=== PATIENT | male | born 1995 | race American Indian/Alaskan Native ===

== ENCOUNTER 2019-03-12 08:49 | Emergency (ER) | payer SELFPAY ==
--- NOTE | 2019-03-12 09:03 | Emergency Department Report ---
HPI - General Chief Complaint: Chest Pain Time Seen by Provider: 03/12/19 09:01 - HPI HPI: Patient is a 24-year-old -[place] male who comes to the ER complaining of a chest pain that comes and goes. She describes the pain as sharp. He states that when he gets the pain he gets extremely nervous and anxious. He then gets short of breath. Then he feels " funny." Patient states this is worse at night when he is at rest. During the day when he is up and about and staying busy he does not have any problems. He states has been going on for several days and seems to be worsening. Nothing seems to make this better or worse. He can not find work. He denies alcohol or drugs or tobacco. He lives with his girlfriend. His mother and father are alive and well. The patient denies any asthma, trauma, fever or chills. Patient states he's never had anything like this before. He describes himself as "anxious." He is worried about not having work and living with his girlfriend. We've had a long discussion about anxiety. Twelve-lead EKG was completed by EMS was normal. ED Past Medical Hx - Past Medical History Previous Medical History?: No - Surgical History Past Surgical History?: No - Family History Family history: no significant - Social History Smoking Status: Never Smoker Substance Use Type: None - Medications Home Medications: Home Medications Medication Instructions Recorded Confirmed Last Taken Type hydrOXYzine PAMOATE [Vistaril] 25 mg PO QHS PRN #5 capsule 03/12/19 Unknown Rx ED Review of Systems ROS: Stated complaint: CHEST PAIN Other details as noted in HPI Comment: All other systems reviewed and negative Physical Exam - Physical Exam Vital Signs: Vital Signs 03/12/19 08:50 Temperature 98.6 F Pulse Rate 69 Respiratory 18 Rate Blood Pressure 149/97 O2 Sat by Pulse 100 Oximetry Physical Exam: alert and oriented nervous-playing with armband s1s2 lungs cta abd snt no edema no jvd ED Course Vital Signs 03/12/19 08:50 Temperature 98.6 F Pulse Rate 69 Respiratory 18 Rate Blood Pressure 149/97 O2 Sat by Pulse 100 Oximetry ED Medical Decision Making - EKG Data Interpretation: other (12lead done via ems normal ) - Medical Decision Making pt co sharp intermittent cp off and on for weeks otherwise healthy male out of work- can not find a job lives with girlfriend mom and dad alive and well no thc occ beer denies cig pmh none psh none rx none nontoxic on exam taking po ambulatory without sob states he has been anxious due to not having work long discussion with pt - will dc home and have follow up with pcp, referral given given coping suggestions; pt verbalizes understanding and states he just wanted to "make sure he was not having a heart attack" Vital Signs 03/12/19 08:50 Temperature 98.6 F Pulse Rate 69 Respiratory 18 Rate Blood Pressure 149/97 O2 Sat by Pulse 100 Oximetry - Differential Diagnosis anxiety/musculoskeletal pain Critical care attestation.: If time is entered above; I have spent that time in minutes in the direct care of this critically ill patient, excluding procedure time. ED Disposition Clinical Impression: Anxiety Disposition: DC-01 TO HOME OR SELFCARE Is pt being admited?: No Does the pt Need Aspirin: No Condition: Stable Instructions: Anxiety (ED) Additional Instructions: HYDRATE WELL WITH WATER AVOID STIMULANTS/CAFFEINE Prescriptions: hydrOXYzine PAMOATE [Vistaril] 25 mg PO QHS PRN #5 capsule PRN Reason: Anxiety Referrals: MAGDALENA PARSONS MD [Staff Physician] - 3-5 Days [facility] [Outside] - 3-5 Days Time of Disposition: 09:16
[2019-03-12 09:31] VITALS: BP 131/70
== END 2019-03-12 09:20 | disposition home or self-care (01) ==
LOC: ED 08:49
DX: F41.9 Anxiety disorder, unspecified (principal); R07.89 Other chest pain; Z79.899 Other long term (current) drug therapy

== ENCOUNTER 2020-07-23 15:52 | Emergency (ER) | payer OTHER ==
[2020-07-23 16:36] VITALS: BP 129/93
[2020-07-23 17:23] LABS: Basophils # (Auto) 0.1 K/mm3 (0.0-0.1); Basophils % (Auto) 1.7 % (0.0-1.8); Eosinophils # (Auto) 0.1 K/mm3 (0.0-0.4); Eosinophils % (Auto) 2.9 % (0.0-4.3); Hematocrit 44.9 % (35.5-45.6); Hemoglobin 15.4 gm/dl (11.8-15.2); Lymphocytes # (Auto) 1.2 K/mm3 (1.2-5.4); Lymphocytes % (Auto) 28.9 % (13.4-35.0); Mean Corpuscular HGB Conc 34 % (32-34); Mean Corpuscular Volume 102 fl (84-94); Monocytes # (Auto) 0.7 K/mm3 (0.0-0.8); Monocytes % (Auto) 15.7 % (0.0-7.3); Platelet Count 190 K/mm3 (140-440); Red Blood Count 4.42 M/mm3 (3.65-5.03); Red Cell Distribution Width 12.8 % (13.2-15.2)
[2020-07-23 17:36] LABS: Alanine Aminotransferase 10 units/L (7-56); Albumin 4.7 g/dL (3.9-5); BUN/Creatinine Ratio 11; Blood Urea Nitrogen 9 mg/dL (9-20); Calcium 10.1 mg/dL (8.4-10.2); Hemolysis Index 4
--- NOTE | 2020-07-23 17:39 | XRay Report ---
CHEST PA AND LATERAL VIEWS INDICATION: shortness of breath. COMPARISON: None FINDINGS: Support devices: None Heart: Normal Lungs/Pleura: No acute pulmonary or pleural findings. IMPRESSION: 1. No active disease. Signer Name: Sherwin Grewal MD Signed: 07/23/2020 5:35 PM Workstation Name: [id number]
--- NOTE | 2020-07-23 19:54 | Emergency Department Report ---
ED Chest Pain HPI - General Chief Complaint: Abdominal Pain Stated Complaint: CHEST PAIN; LT ARM PAIN/NUMBNESS Time Seen by Provider: 07/23/20 19:22 Source: patient Mode of arrival: Ambulatory Limitations: No Limitations - History of Present Illness Initial Comments: CC: arm tingling, chest pain, shortness of breath HPI: This is a 25 yo male without significant medical history who presents with left arm tingiling, chest pain and shortness of breath for several days. Patient has had mild chest discomfort transiently last night. Left arm tingling mild, occurred a few days ago. Intermittent, tightness radiates to neck. Mild shortness of breath. Lasted a few moments last night. 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 He has been around several contacts. No known COVID contacts. He has been at a stressful job for one year. He lives with girlfriend, her daughter and girlfriends' parents. He is anxious to have his own place to live. No depression. He is a little stressed. No use of tobacco or marijuauna. He drinks socially. Hx of HTN in family. Otherwise, family members are healthy. MD Complaint: chest pain -: Gradual, Last night Onset: during rest Pain Radiation: none Severity: mild Severity scale (0 -10): 0 Quality: tightness, dull Consistency: now resolved Improves With: nothing Worsens With: nothing Context: other (no travel no illness no trauma) - Related Data Previous Rx's Medication Instructions Recorded Last Taken Type hydrOXYzine PAMOATE [Vistaril] 25 mg PO QHS PRN #5 capsule 03/12/19 Unknown Rx Allergies Allergy/AdvReac Type Severity Reaction Status Date / Time No Known Allergies Allergy Verified 07/23/20 16:32 Heart Score - HEART Score History: Slightly suspicious EKG: Normal Age: < 45 Risk factors: No known risk factors Troponin: < normal limit HEART Score: 0 ED Review of Systems ROS: Stated complaint: CHEST PAIN; LT ARM PAIN/NUMBNESS Other details as noted in HPI Comment: All other systems reviewed and negative Constitutional: denies: chills, fever, malaise Respiratory: shortness of breath. denies: see HPI Cardiovascular: chest pain ED Past Medical Hx - Past Medical History Previous Medical History?: No - Surgical History Past Surgical History?: No - Social History Smoking Status: Never Smoker Substance Use Type: Alcohol - Medications Home Medications: Home Medications Medication Instructions Recorded Confirmed Last Taken Type hydrOXYzine PAMOATE [Vistaril] 25 mg PO QHS PRN #5 capsule 03/12/19 Unknown Rx ED Physical Exam - General Limitations: No Limitations General appearance: alert, in no apparent distress - Head Head exam: Present: atraumatic, normocephalic - Eye Eye exam: Present: normal appearance - ENT ENT exam: Present: mucous membranes moist - Neck Neck exam: Present: normal inspection, full ROM - Respiratory Respiratory exam: Present: normal lung sounds bilaterally. Absent: respiratory distress, wheezes, rales, rhonchi - Cardiovascular Cardiovascular Exam: Present: regular rate, normal rhythm, normal heart sounds. Absent: systolic murmur, diastolic murmur, rubs, gallop - GI/Abdominal GI/Abdominal exam: Present: soft, normal bowel sounds. Absent: distended, tende rness, guarding, rebound - Rectal Rectal exam: Present: deferred - Extremities Exam Extremities exam: Present: normal inspection - Neurological Exam Neurological exam: Present: alert, oriented X3 - Psychiatric Psychiatric exam: Present: normal affect, normal mood - Skin Skin exam: Present: warm, dry, intact, normal color. Absent: rash ED Course Vital Signs 07/23/20 16:35 Temperature 98.6 F Pulse Rate 73 Respiratory 18 Rate Blood Pressure 129/93 O2 Sat by Pulse 99 Oximetry ED Medical Decision Making - Lab Data Result diagrams: 07/23/20 16:59 07/23/20 16:59 Laboratory Results - last 24 hr 07/23/20 07/23/20 16:59 16:59 WBC 4.3 L RBC 4.42 Hgb 15.4 H Hct 44.9 MCV 102 H MCH 35 H MCHC 34 RDW 12.8 L Plt Count 190 Lymph % (Auto) 28.9 White % (Auto) 15.7 H Eos % (Auto) 2.9 Baso % (Auto) 1.7 Lymph # (Auto) 1.2 White # (Auto) 0.7 Eos # (Auto) 0.1 Baso # (Auto) 0.1 Seg Neutrophils % 50.8 Seg Neutrophils # 2.2 Sodium 139 Potassium 4.4 Chloride 101.4 Carbon Dioxide 33 H Anion Gap 9 BUN 9 Creatinine 0.8 Estimated GFR > 60 BUN/Creatinine Ratio 11 Glucose 82 Calcium 10.1 Total Bilirubin 0.40 AST 29 ALT 10 Alkaline Phosphatase 71 Total Protein 7.6 Albumin 4.7 Albumin/Globulin Ratio 1.6 Lipase 24 - Radiology Data Radiology results: report reviewed cxr: no acute process - Medical Decision Making 1. chest pain: EKG not obtained in young patient with noncardiac chest pain. CXR: nap, suspect PVC vs chest wall pain 2. left arm tingling with neck tightness possibly cervical ddd vs brachial plexus injury, exremity neurovascularly intact, recommended outpatient physical therapy recommended full physical, Patient received referral to outpatient physician Critical care attestation.: If time is entered above; I have spent that time in minutes in the direct care of this critically ill patient, excluding procedure time. ED Disposition Clinical Impression: Chest pain, Tingling of left upper extremity Disposition: TO HOME OR SELFCARE Is pt being admited?: No Does the pt Need Aspirin: No Condition: Stable Instructions: Chest Pain (ED), Nonspecific Chest Pain, Adult, Peripheral Neuropathy Referrals: RANDY CLARKE MD [Staff Physician] - 3-5 Days
== END 2020-07-23 20:06 | disposition home or self-care (01) ==
LOC: ED 15:52
DX: R07.89 Other chest pain (principal); R06.02 Shortness of breath; R20.2 Paresthesia of skin; Z79.899 Other long term (current) drug therapy
CPT/HCPCS: 36415; 71046; 80053; 83690; 85025